=== PATIENT | male | born 1990 | race Caucasian/White ===

== ENCOUNTER → 2016-10-18 | Outpatient (CLI) | payer OTHER ==
[~2016-10-18] MED LIST: LORTAB 5-325 M1 EACH PO
== END | disposition home or self-care (01) ==
LOC: PTH.S 08:27
DX: M54.9 Dorsalgia, unspecified (principal)

== ENCOUNTER → 2017-01-18 | Outpatient (CLI) | payer OTHER | END | disposition home or self-care (01) | LOC: RAD.S 08:30 | DX: R10.13 Epigastric pain (principal); I73.9 Peripheral vascular disease, unspecified ==

== ENCOUNTER → 2017-02-07 | Outpatient (CLI) | payer OTHER | END | disposition home or self-care (01) | LOC: PTH.S 14:39 | DX: K21.9 Gastro-esophageal reflux disease without esophagitis (principal); R63.4 Abnormal weight loss ==